=== PATIENT | female | born 1970 | race Caucasian/White ===

== ENCOUNTER 2025-01-10 13:52 | Emergency (ER) | payer OTHER ==
[~2025-01-10] VITALS: Ht 165.1 cm; Wt 56.2 kg
[2025-01-10] MEDS ORDERED: Ketorolac Tromethamine 15mg Vial IV ONE (14:15)
[2025-01-10 14:30] LABS: BASOPHILS ABSOLUTE AUTO 0.06 K/mm3 (0.00-0.23); BASOPHILS PERCENT AUTO 1 % (0-2); EOSINOPHILS ABSOLUTE AUTO 0.15 K/mm3 (0.00-0.68); EOSINOPHILS PERCENT AUTO 2 % (0-6); Hematocrit 38.0 % (33.0-51.0); Hemoglobin 12.9 g/dL (11.5-16.0); IMMATURE GRAN ABSOLUTE AUTO 0.03 K/mm3 (0.00-0.10); IMMATURE GRAN PERCENT AUTO 0 % (0-1); LYMPHOCYTES ABSOLUTE AUTO 2.36 K/mm3 (0.84-5.20); LYMPHOCYTES PERCENT AUTO 30 % (21-46); MONOCYTES ABSOLUTE AUTO 0.61 K/mm3 (0.16-1.47); MONOCYTES PERCENT AUTO 8 % (4-13); Mean Corpuscular HGB Conc 33.9 g/dL (31.5-36.5); Mean Corpuscular Volume 93 fL (80-100); NEUTROPHILS ABSOLUTE AUTO 4.75 K/mm3 (1.96-9.15); NEUTROPHILS PERCENT AUTO 60 % (41-73); NRBC ABSOLUTE 0.00 K/mm3 (0.00-0.02); NRBC Auto 0.0 /100 WBC (0.0-0.2); Platelet Count 256 K/mm3 (150-400); RDW Coefficient Variation 13.2 % (11.7-14.2); RDW Standard Deviation 45.5 fL (35.1-46.3)
[2025-01-10] MEDS ORDERED: GABA800 PO (14:33)
[2025-01-10] MEDS ORDERED: Carisoprodol350 MG (14:49)
[2025-01-10] MEDS ORDERED: TRAZ50 (14:50)
[2025-01-10] MEDS ORDERED: HYDROCODONE-AC473 ML (14:51)
[2025-01-10 14:55] LABS: Alanine Aminotransfer (ALT/SGP 17.0 U/L (12-78); Albumin, Blood 3.6 g/dL (3.4-5.0); Albumin/Globulin Ratio 1.5 (0.8-1.8); Anion Gap 7.0 mmol/L (3-11); Aspartate Aminotrans (AST/SGOT 19.0 U/L (12-37); Bilirubin, Total 0.2 mg/dL (0.1-1.0); Blood Urea Nitrogen 8.0 mg/dL (8-24); CO2, Blood 29.0 mmol/L (21-32); Calcium, Blood 8.4 mg/dL (8.5-10.1); Chloride, Blood 107.0 mmol/L (98-108); Creatinine, Blood 0.69 mg/dL (0.40-1.00); Globulin, Blood 2.4 g/dL (2.2-4.0); Glucose, Blood 119.0 mg/dL (70-99); Magnesium, Blood 2.3 mg/dL (1.6-2.4); Potassium, Blood 3.5 mmol/L (3.5-5.5); Sodium, Blood 139.0 mmol/L (136-145); Total Protein, Blood 6.0 g/dL (6.4-8.2)
[2025-01-10] MEDS ORDERED: Metoclopramide HCl 5MG / ML 2ML Vial IV ONE (17:25)
[2025-01-10 17:45] VITALS: BP 110/70
== END 2025-01-10 17:55 | disposition home or self-care (01) ==
LOC: ER 13:52
PROVIDERS: Emergency Medicine
DX: T42.6X1A Poisoning by other antiepileptic and sedative-hypnotic drugs, accidental (unintentional), initial encounter (principal); R40.0 Somnolence; G43.909 Migraine, unspecified, not intractable, without status migrainosus
CPT/HCPCS: 80053; 83735; 85025; 93005; 93010; 96374; 96375; 99284-25; J1885; J2765